=== PATIENT | female | born 1945 | race Two or more races ===

== ENCOUNTER 2023-02-14 14:49 | Emergency (ER) | payer OTHER ==
[~2023-02-14] VITALS: Ht 149.9 cm; Wt 63.5 kg
[2023-02-14] MEDS ORDERED: TOPROL XL50 M1 PO (15:05)
[2023-02-14] MEDS ORDERED: ALBUTEROL1.25 MG/3 IH (15:05)
[2023-02-14 17:15] LABS: HEMATOCRIT 42.5 % (36.0-45.00); HEMOGLOBIN 14.4 g/dL (12.0-15.00); MEAN CELL VOLUME 88.4 fL (80.00-100.00); PLATELET COUNT 245 K/uL (150-450); RED CELL DISTRIBUTION WIDTH 13.7 % (11.5-14.5)
[2023-02-14 17:46] LABS: ALBUMIN 3.3 gm/dL (3.4-5.0); BILIRUBIN TOTAL 0.82 mg/dL (0.3-1.2); CALCIUM 9.3 mg/dL (8.5-10.1); CREATININE SERUM 0.94 mg/dL (0.55-1.02); GFR 57.44; GLOBULINA 4.7 G/DL (2.4-3.5); POTASSIUM 4.32 mEq/L (3.5-5.1)
== END 2023-02-14 21:16 | disposition home or self-care (01) ==
LOC: ER 14:49
PROVIDERS: General Practice
DX: J92.9 Pleural plaque without asbestos (principal); R05.8 Other specified cough; Z91.041 Radiographic dye allergy status; Z90.2 Acquired absence of lung [part of]; Z85.118 Personal history of other malignant neoplasm of bronchus and lung; R91.8 Other nonspecific abnormal finding of lung field; I51.7 Cardiomegaly; J06.9 Acute upper respiratory infection, unspecified
CPT/HCPCS: 36415; 71250; 94640; 96365; 96366; 99284; J1200; J2930; J3490; Q9965

== ENCOUNTER 2024-11-13 19:35 | Emergency (ER) | payer OTHER ==
[~2024-11-13] VITALS: Ht 152.4 cm; Wt 61.2 kg
[~2024-11-13 19:35] MED LIST: ALBUTEROL1.25 MG/3 IH; TOPROL XL50 M1 PO
[2024-11-13] MEDS ORDERED: LEVALBUTEROL HCL 1.25 MG/3 ML SOLUTION IH ONE (20:00)
[2024-11-13] MEDS ORDERED: IPRATROPIUM BROMIDE 0.5 MG/2.5 ML AMPUL.NEB IH ONE (20:00)
[2024-11-13 20:34] LABS: BASO % 1.5 % (0.1-1.2); EOS # 0.32 (0.04-0.54); EOS % 3.3 % (0.7-7.0); LYMPH # 2.73 (1.18-3.74); LYMPH % 28.1 % (19.3-53.1); MEAN PLATELET VOLUME 9.90 fl (9.4-12.4); MONO # 0.74 (0.24-0.82); MONO % 7.6 % (4.7-12.5); NEUT # 5.76 (1.56-6.13); NEUT % 59.3 % (34.0-71.1); RED CELL DISTRIBUTION WIDTH 13.7 % (11.6-14.4)
[2024-11-13 20:46] LABS: ALT/SGPT 23.0 U/L (12-78); AST/SGOT 17.0 U/L (15-37); BILIRUBIN TOTAL 0.71 mg/dL (0.3-1.2); BUN CREA RATIO 17.0 (7.0-25.0); CREATININE SERUM 1.78 mg/dL (0.55-1.02); GFR 27.35; GLOBULINA 4.2 G/DL (2.4-3.5); GLUCOSE FASTING 84.0 mg/dL (65-100); OSMOLALITY SERUM 293.0 MOSM/KG (275-295)
[2024-11-13 21:16] LABS: COVID-19 AG NEGATIVE (NEGATIVE)
[2024-11-13] MEDS ORDERED: ROSUVASTATIN CA20 MG PO (21:25)
[2024-11-13] MEDS ORDERED: ALLOPURINOL300 MG PO (21:25)
[2024-11-13] MEDS ORDERED: CANDESARTAN CIL32 MG PO (21:25)
[2024-11-13] MEDS ORDERED: NABUMETONE500 MG PO (21:25)
[2024-11-13] MEDS ORDERED: UCERIS9 MG PO (21:26)
[2024-11-13] MEDS ORDERED: METHYLPREDNISOLONE SOD SUCC 125 MG VIAL IV ONE (23:00)
[2024-11-13] MEDS ORDERED: BUDESONIDE0.5 MG/2 M IH (23:20)
[2024-11-13] MEDS ORDERED: IPRATROPIU0.2 MG/1 M IH (23:20)
[2024-11-13] MEDS ORDERED: BENZONATATE 100 MG CAPSULE PO ONE (23:30)
[2024-11-13] MEDS ORDERED: BENZONATATE200 M1 PO (23:33)
[2024-11-13] MEDS ORDERED: MUCINEX600 MG PO (23:33)
[2024-11-13] MEDS ORDERED: GUAIFENESIN 200 MG/10 ML BLIST.PACK PO ONE (23:45)
== END 2024-11-13 23:36 | disposition home or self-care (01) ==
LOC: ER 19:58
PROVIDERS: Preventive Medicine Public Health & General Preventive Medicine
DX: J45.909 Unspecified asthma, uncomplicated (principal); Z20.822 Contact with and (suspected) exposure to COVID-19

== ENCOUNTER 2024-11-16 16:34 | Emergency (ER) | payer OTHER ==
[~2024-11-16] VITALS: Ht 152.4 cm; Wt 64.0 kg
[~2024-11-16 16:34] MED LIST changes: +ALLOPURINOL300 MG PO; +BENZONATATE200 M1 PO; +BUDESONIDE0.5 MG/2 M IH; +CANDESARTAN CIL32 MG PO; +IPRATROPIU0.2 MG/1 M IH; +MUCINEX600 MG PO; +NABUMETONE500 MG PO; +ROSUVASTATIN CA20 MG PO; +UCERIS9 MG PO
[2024-11-16 16:41] VITALS: BP 162/75
[2024-11-16] MEDS ORDERED: IPRATROPIUM BROMIDE 0.5 MG/2.5 ML AMPUL.NEB IH SCH (17:00)
[2024-11-16] MEDS ORDERED: GUAIFEN/DEXTROMETHORPHAN/PE 10 ML BLIST.PACK PO ONE (17:00)
[2024-11-16] MEDS ORDERED: LEVALBUTEROL HCL 1.25 MG/3 ML SOLUTION IH SCH (17:00)
[2024-11-16] MEDS ORDERED: FAMOTIDINE/PF 20 MG in 0.9 % SODIUM CHLORIDE 8 ML IV PUSH ONE (17:00)
[2024-11-16] MEDS ORDERED: METHYLPREDNISOLONE SOD SUCC 125 MG VIAL IV ONE (17:00)
[2024-11-16] MEDS ORDERED: 0.9 % SODIUM CHLORIDE 1,000 ML IV ONE (17:00)
[2024-11-16 17:43] LABS: BASO % 0.2 % (0.1-1.2); EOS # 0.02 (0.04-0.54); EOS % 0.1 % (0.7-7.0); LYMPH # 2.40 (1.18-3.74); LYMPH % 13.0 % (19.3-53.1); MEAN PLATELET VOLUME 10.40 fl (9.4-12.4); MONO # 1.09 (0.24-0.82); MONO % 5.9 % (4.7-12.5); NEUT # 14.90 (1.56-6.13); NEUT % 80.5 % (34.0-71.1); RED CELL DISTRIBUTION WIDTH 13.8 % (11.6-14.4)
[2024-11-16 17:52] LABS: COVID-19 AG NEGATIVE (NEGATIVE)
[2024-11-16 18:05] LABS: ALT/SGPT 41.0 U/L (12-78); AST/SGOT 18.0 U/L (15-37); BILIRUBIN TOTAL 1.0 mg/dL (0.3-1.2); BUN CREA RATIO 36.0 (7.0-25.0); CREATININE SERUM 1.17 mg/dL (0.55-1.02); GFR 44.39; GLOBULINA 4.0 G/DL (2.4-3.5); GLUCOSE FASTING 118.0 mg/dL (65-100); OSMOLALITY SERUM 297.0 MOSM/KG (275-295)
[2024-11-16 19:03] LABS: URINE APPEARANCE Clear; URINE BILIRRUBIN Negative (NEGATIVE); URINE BLOOD Negative; URINE COLOR Yellow; URINE GLUCOSE Negative (NEGATIVE); URINE KETONE Negative (NEGATIVE); URINE LEUKOCYTE Negative; URINE NITRATE Negative; URINE PROTEIN 30 (NEGATIVE); URINE UROBILINOGEN 0.2 E.U./dl
[2024-11-16 19:07] LABS: URINE BACTERIA 17.9 uL (0.0-1933); URINE EPITHELIAL CELLS 6.3 uL (0.0-38.8); URINE RBC 2.7 uL (0.0-20.8); URINE WBC 20.4 uL (0.0-23.2)
[2024-11-16 19:10] LABS: URINE CAST 0.43 uL (0.0-1.40)
[2024-11-16 20:33] VITALS: O2SAT 99
== END 2024-11-16 20:34 | disposition home or self-care (01) ==
LOC: ER 16:38
PROVIDERS: General Practice
DX: J40 Bronchitis, not specified as acute or chronic (principal); R05.9 Cough, unspecified; Z20.822 Contact with and (suspected) exposure to COVID-19; I10 Essential (primary) hypertension; Z91.041 Radiographic dye allergy status

== ENCOUNTER 2024-11-29 15:09 | Inpatient (IN) | payer OTHER ==
[~2024-11-29] VITALS: Ht 149.9 cm; Wt 59.0 kg
[2024-11-29] MEDS ORDERED: IPRATROPIU0.2 MG/1 M IH (15:28)
[2024-11-29] MEDS ORDERED: ATACAND4 MG PO (15:28)
[2024-11-29] MEDS ORDERED: CARDURA1 MG PO (15:28)
--- NOTE | 2024-11-29 15:28 | NUR ---
SE RECIBE PTE ALERTA Y ORIENTADA X3 CUAL REFIERE TOS QUE NO MEJORA CON MEDICAMENTOS Y PERIODOS CON FALTA DE AIRE. SE JANELLE S/V Y SE UBICA.
[2024-11-29] MEDS ORDERED: CEFTRIAXONE SODIUM 1,000 MG VIAL IV ONE (15:45)
[2024-11-29] MEDS ORDERED: LEVALBUTEROL HCL 1.25 MG/3 ML SOLUTION IH SCH ×2 (15:45→21:00)
[2024-11-29] MEDS ORDERED: METHYLPREDNISOLONE SOD SUCC 125 MG VIAL IV ONE (15:45)
[2024-11-29] MEDS ORDERED: IPRATROPIUM BROMIDE 0.5 MG/2.5 ML AMPUL.NEB IH SCH ×2 (15:45→21:00)
[2024-11-29] MEDS ORDERED: MAGNESIUM SULFATE IN WATER 2 GM/50 ML PIGGYBAG IV ONE (15:45)
[2024-11-29] MEDS ORDERED: BENZONATATE 100 MG CAPSULE PO ONE (15:45)
--- NOTE | 2024-11-29 16:04 | NUR ---
SE ORIENTA A PTE SOBRE TX MEDICO ORDENADO POR . SE REALIZA WENDIE DE MUESTRAS DE LAB WENDY ORDEN MEDICA Y BAJO MEDIDAS ASEPTICAS. VENOPUNCION PATENTE FELIX DE EDEMA Y ERITEMA BAJANDO IV FLUIDS POR REGULADOR. PTE PENDIENTE A ESTUDIO, SE NOTIFICA.
[2024-11-29 16:07] LABS: BASO % 1.1 % (0.1-1.2); EOS # 0.07 (0.04-0.54); EOS % 0.9 % (0.7-7.0); LYMPH # 1.41 (1.18-3.74); LYMPH % 18.9 % (19.3-53.1); MEAN PLATELET VOLUME 10.00 fl (9.4-12.4); MONO # 0.82 (0.24-0.82); MONO % 11.0 % (4.7-12.5); NEUT # 5.05 (1.56-6.13); NEUT % 67.8 % (34.0-71.1); RED CELL DISTRIBUTION WIDTH 13.7 % (11.6-14.4)
[2024-11-29 16:10] LABS: ABG PH 7.417 (7.35-7.45); ABG PO2 90.0 mmHg (80-100); BICARBONATE 21.5 mmol/l (23-25)
[2024-11-29 16:31] LABS: COVID-19 AG POSITIVE (NEGATIVE)
[2024-11-29 16:34] LABS: o2 21 %
[2024-11-29 16:46] LABS: ALT/SGPT 20.0 U/L (12-78); AST/SGOT 15.0 U/L (15-37); BILIRUBIN TOTAL 1.07 mg/dL (0.3-1.2); BUN CREA RATIO 15.0 (7.0-25.0); CREATININE SERUM 1.51 mg/dL (0.55-1.02); GFR 33.07; GLOBULINA 4.2 G/DL (2.4-3.5); GLUCOSE FASTING 87.0 mg/dL (65-100); OSMOLALITY SERUM 286.0 MOSM/KG (275-295)
[2024-11-29] MEDS ORDERED: 0.9 % SODIUM CHLORIDE 1,000 ML IV SCH (20:15)
[2024-11-29] MEDS ORDERED: AZITHROMYCIN 500 MG in DEXTROSE 5 % IN WATER 250 ML IV SCH (20:19)
[2024-11-29] MEDS ORDERED: FAMOTIDINE/PF 20 MG in 0.9 % SODIUM CHLORIDE 8 ML IV PUSH SCH (20:19)
[2024-11-29] MEDS ORDERED: METHYLPREDNISOLONE SOD SUCC 40 MG VIAL IV SCH (20:20)
[2024-11-29] MEDS ORDERED: ACETAMINOPHEN 500 MG GEL..CAP PO PRN (20:30)
[2024-11-29 22:19] LABS: INR 1.0
[2024-11-29 23:03] LABS: URINE APPEARANCE Clear; URINE BILIRRUBIN Negative (NEGATIVE); URINE BLOOD Negative; URINE COLOR Yellow; URINE GLUCOSE Negative (NEGATIVE); URINE KETONE Trace (NEGATIVE); URINE LEUKOCYTE Small; URINE NITRATE Negative; URINE PROTEIN 30 (NEGATIVE); URINE UROBILINOGEN 0.2 E.U./dl
[2024-11-29 23:07] LABS: URINE BACTERIA 57.5 uL (0.0-1933); URINE CAST 3.51 uL (0.0-1.40); URINE EPITHELIAL CELLS 13.5 uL (0.0-38.8); URINE RBC 2.0 uL (0.0-20.8); URINE WBC 17.8 uL (0.0-23.2)
[2024-11-29 23:27] LABS: URINE MUCUS NEGATIVE
[2024-11-30 00:46] VITALS: BP 107/65; O2SAT 94
[2024-11-30] MEDS ORDERED: GUAIFEN/DEXTROMETHORPHAN/PE 10 ML BLIST.PACK PO SCH (02:00)
[2024-11-30 04:34] VITALS: BP 115/69; O2SAT 95
[2024-11-30 08:00] VITALS: BP 130/78; O2SAT 98
[2024-11-30] MEDS ORDERED: CANDESARTAN CILEXETIL 32 MG TABLET PO SCH (09:00)
[2024-11-30] MEDS ORDERED: CEFTRIAXONE SODIUM 2,000 MG in 0.9 % SODIUM CHLORIDE 100 ML IV SCH (09:00)
[2024-11-30] MEDS ORDERED: ROSUVASTATIN CALCIUM 10 MG TABLET PO SCH (09:00)
[2024-11-30] MEDS ORDERED: CANDESARTAN CILEXETIL 8 MG TAB PO SCH (09:00)
[2024-11-30] MEDS ORDERED: REMDESIVIR 100 MG VIAL IV ONE (11:00)
[2024-11-30] MEDS ORDERED: ENOXAPARIN SODIUM 30 MG/0.3 ML SYRINGE SUBCUTANEO SCH (13:37)
[2024-11-30] MEDS ORDERED: DOXAZOSIN MESYLATE 2 MG TABLET PO SCH (17:00)
[2024-11-30] MEDS ORDERED: LACTOBACILLUS ACIDOPHILUS 1 CAP CAP PO SCH (17:00)
[2024-11-30 19:35] VITALS: BP 122/61; O2SAT 98
[2024-11-30] MEDS ORDERED: AZITHROMYCIN 500 MG in DEXTROSE 5 % IN WATER 250 ML IV SCH (21:00)
[2024-12-01 01:53] VITALS: BP 137/60; O2SAT 95
[2024-12-01 06:17] LABS: BASO % 0.2 % (0.1-1.2); EOS # 0.00 (0.04-0.54); EOS % 0.0 % (0.7-7.0); LYMPH # 0.68 (1.18-3.74); LYMPH % 4.1 % (19.3-53.1); MEAN PLATELET VOLUME 10.50 fl (9.4-12.4); MONO # 0.40 (0.24-0.82); MONO % 2.4 % (4.7-12.5); NEUT # 15.44 (1.56-6.13); NEUT % 92.9 % (34.0-71.1); RED CELL DISTRIBUTION WIDTH 14.3 % (11.6-14.4)
[2024-12-01 07:19] LABS: ALT/SGPT 20.0 U/L (12-78); AST/SGOT 15.0 U/L (15-37); BILIRUBIN TOTAL 0.65 mg/dL (0.3-1.2); BUN CREA RATIO 22.0 (7.0-25.0); CREATININE SERUM 1.28 mg/dL (0.55-1.02); GFR 40.02; GLOBULINA 3.2 G/DL (2.4-3.5); GLUCOSE FASTING 134.0 mg/dL (65-100); OSMOLALITY SERUM 296.0 MOSM/KG (275-295)
[2024-12-01 08:00] VITALS: BP 153/66; O2SAT 96
[2024-12-01] MEDS ORDERED: SODIUM CHLORIDE 0.45 % 1,000 ML IV SCH (08:30)
[2024-12-01] MEDS ORDERED: REMDESIVIR 100 MG VIAL IV SCH (09:00)
[2024-12-01 11:49] LABS: COVID-19 AG POSITIVE (NEGATIVE)
[2024-12-01 16:00] VITALS: BP 152/70; O2SAT 97
[2024-12-01] MEDS ORDERED: REMDESIVIR 100 MG VIAL IV NR (17:00)
[2024-12-02] MEDS ORDERED: METHYLPREDNISOLONE SOD SUCC 40 MG VIAL IV SCH (01:00)
[2024-12-02 02:15] VITALS: BP 136/73; O2SAT 95
[2024-12-02 07:05] LABS: BASO % 0.1 % (0.1-1.2); EOS # 0.00 (0.04-0.54); EOS % 0.0 % (0.7-7.0); LYMPH # 0.96 (1.18-3.74); LYMPH % 6.6 % (19.3-53.1); MEAN PLATELET VOLUME 10.70 fl (9.4-12.4); MONO # 0.54 (0.24-0.82); MONO % 3.7 % (4.7-12.5); NEUT # 12.91 (1.56-6.13); NEUT % 88.8 % (34.0-71.1); RED CELL DISTRIBUTION WIDTH 14.6 % (11.6-14.4)
[2024-12-02 07:40] LABS: BUN CREA RATIO 27.0 (7.0-25.0); CREATININE SERUM 0.96 mg/dL (0.55-1.02); GFR 55.78; GLUCOSE FASTING 121.0 mg/dL (65-100); OSMOLALITY SERUM 295.0 MOSM/KG (275-295)
[2024-12-02 08:00] VITALS: BP 130/70; O2SAT 97
[2024-12-02 16:00] VITALS: BP 155/77; O2SAT 97
[2024-12-02] MEDS ORDERED: CODEINE/PROMETHAZINE HCL 1 ML ML PO SCH (19:17)
[2024-12-03 01:34] VITALS: BP 138/73; O2SAT 97
[2024-12-03 08:00] VITALS: BP 175/78; O2SAT 95
== END 2024-12-03 12:59 | disposition home or self-care (01) | DRG 178 ==
LOC: SURH → ER 15:09 → SEC-K 20:30 → SURH 20:30
PROVIDERS: General Practice; Internal Medicine Nephrology; ADMIT Student in an Organized Health Care Education/Training Program; ATTEND Student in an Organized Health Care Education/Training Program
PROC: 8E0ZXY6 Isolation (ICD-10-PCS; principal; 2024-11-29)
PROC: 3E0F7GC Introduction of Other Therapeutic Substance into Respiratory Tract, Via Natural or Artificial Opening (ICD-10-PCS; 2024-11-30)
PROC: XW033E5 Introduction of Remdesivir Anti-infective into Peripheral Vein, Percutaneous Approach, New Technology Group 5 (ICD-10-PCS; 2024-12-01)
DX: U07.1 COVID-19 (principal); C34.90 Malignant neoplasm of unspecified part of unspecified bronchus or lung; J44.1 Chronic obstructive pulmonary disease with (acute) exacerbation; J45.21 Mild intermittent asthma with (acute) exacerbation; N17.9 Acute kidney failure, unspecified; I12.9 Hypertensive chronic kidney disease with stage 1 through stage 4 chronic kidney disease, or unspecified chronic kidney disease; N18.9 Chronic kidney disease, unspecified; E78.5 Hyperlipidemia, unspecified
CPT/HCPCS: 94640; J0248